=== PATIENT | female | born 2000 ===

== ENCOUNTER 2023-08-26 00:09 | Emergency (ER) | payer SELFPAY ==
[~2023-08-26] VITALS: Ht 160 cm; Wt 43.7 kg
[2023-08-26 00:10] VITALS: BP 110/62; TEMP 98.7; O2SAT 100
[2023-08-26] MEDS ORDERED: ONDANSETRON 4MG 2ML VIAL As Ordered ONE (06:40)
[2023-08-26] MEDS ORDERED: BISACODYL 10MG SUPP As Ordered ONE (08:47)
[2023-08-26] MEDS ORDERED: LACTULOSE 20GM/30ML SYRUP UDC As Ordered ONE (10:02)
[2023-08-26 16:08] LABS: BASO % 0.1 % (0.0-1.0); EOS % 0.1 % (0.0-3.0); HEMATOCRIT 31.5 % (36.0-47.0); LYMPH # 1.4 10^3/uL (1.5-5.0); LYMPH % 13.1 % (24.0-44.0); MEAN CORPUSCULAR HEMOGLOBIN 29.7 pg (27.0-33.0); MEAN CORPUSCULAR HGB CONC 34.9 g/dl (32.0-36.5); MEAN CORPUSCULAR VOLUME 85.1 fl (80.0-96.0); MONO # 0.5 10^3/uL (0.0-0.8); MONO % 4.6 % (2.0-8.0); NEUTROPHILS # 8.8 10^3/uL (1.5-8.5); NEUTROPHILS % 81.6 % (36.0-66.0); PLATELET COUNT, AUTOMATED 240 10^3/uL (150-450); WHITE BLOOD COUNT 10.8 10^3/uL (4.0-10.0)
[2023-08-26 17:13] LABS: BLOOD UREA NITROGEN < 5 MG/DL (9-23); CALCIUM LEVEL 8.9 MG/DL (8.5-10.1); CARBON DIOXIDE LEVEL 26 MMOL/L (20-31); CHLORIDE LEVEL 108 MMOL/L (98-107); CREATININE FOR GFR 0.36 MG/DL (0.55-1.30); GLOMERULAR FILTRATION RATE > 60.0 (>60); GLUCOSE, FASTING 89 MG/DL (60-100); HCG, SERUM QUANTITATIVE 45400.4 MIU/ML (<4.2); POTASSIUM SERUM 4.1 MMOL/L (3.5-5.1); SODIUM LEVEL 137 MMOL/L (136-145)
[2023-08-26 17:16] LABS: ALBUMIN 3.4 G/DL (3.2-5.2); ALKALINE PHOSPHATASE 36 U/L (46-116); ALT/SGPT 30 U/L (7.0-40); AST/SGOT 20 U/L (<34); BILIRUBIN,DIRECT 0.1 MG/DL (<0.4); BILIRUBIN,TOTAL 0.3 MG/DL (0.3-1.2); LIPASE 21 U/L (12-53); TOTAL PROTEIN 6.4 G/DL (5.7-8.2)
== END 2023-08-26 13:38 | disposition home or self-care (01) ==
LOC: M ED 00:09
DX: O99.612 Diseases of the digestive system complicating pregnancy, second trimester (principal); K59.00 Constipation, unspecified